=== PATIENT | male | born 1965 | race Caucasian/White ===

== ENCOUNTER 2021-04-01 23:28 | Emergency (ER) | payer SELFPAY ==
[2021-04-02] MEDS ORDERED: XYLOCAINE 1% HCL 20 ML MDV IJ ONE (00:12)
[2021-04-02] MEDS ORDERED: HYDROCODONE-ACETAMIN 10-325 MG PO ONE (00:14)
[2021-04-02 00:25] VITALS: O2SAT 98
[2021-04-02] MEDS ORDERED: KEFLEX 500 MG PO ONE (01:05)
--- NOTE | 2021-04-02 01:06 | ERPHSYRPT ---
- History of Present Illness Time Seen by Provider: 04/02/21 01:06 Source: patient Exam Limitations: no limitations Patient Subjective Stated Complaint: "I cut my toe up." Triage Nursing Assessment: Patient reported cutting his foot on something at home. He does not know what he cut the foot on d/t complications from a lumbar spine surgery. Denied any falls. right 4th/5th toe with laceration to the volar side with moderate bleeding. Adipose tissue visible. Pulse/motor/sensory intact. Method of Injury: direct blow Occurred: just prior to arrival Quality: constant Severity of Pain-Max: moderate Severity of Pain-Current: moderate Lower Extremities Pain: 3rd toe: right, 4th toe: right Modifying Factors: Improves With: movement Associated Symptoms: none Allergies/Adverse Reactions: Iodinated Contrast Media Allergy (Verified 04/01/21 23:50) tetanus and diphtheria toxoids Allergy (Verified 04/01/21 23:50) Home Medications: Amiodarone HCl 200 mg PO DAILY 04/02/21 [History] Apixaban [Eliquis 5 mg Tablet] 5 mg PO DAILY 04/02/21 [History] Cyclobenzaprine HCl 10 mg PO DAILY 04/02/21 [History] Furosemide 20 mg [Lasix 20 mg] 20 mg PO DAILY 04/02/21 [History] Gabapentin 300 mg [Neurontin 300 mg] 600 mg PO TID 04/02/21 [History] Hydrocodone/Acetaminophen [Hydrocodone-Acetamin 5-325 mg] 1 tab PO TID PRN 04/02/21 [History] Metoprolol Succinate [Toprol Xl] 25 mg PO BID 04/02/21 [History] Metoprolol Succinate [Toprol Xl] 100 mg PO BID 04/02/21 [History] Sertraline HCl 75 mg PO DAILY 04/02/21 [History] lisinopriL [Lisinopril] 5 mg PO DAILY 04/02/21 [History] Hx Tetanus, Diphtheria Vaccination/Date Given: No Hx Influenza Vaccination/Date Given: No Travel Risk - International Travel Have you traveled outside of the country in past 3 weeks: No - Coronavirus Screening Are you exhibiting any of the following symptoms?: No Close contact with a COVID-19 positive Pt in past 14-21 Days: No - Vaccine Status Have you recieved a Covid-19 vaccination: 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[employer] - Vaccination Dates Date of 2cond Vaccination (if applicable): 11/2020 - Review of Systems Constitutional: No Symptoms Eyes: No Symptoms Ears, Nose, & Throat: No Symptoms Respiratory: No Symptoms Cardiac: No Symptoms Abdominal/Gastrointestinal: No Symptoms Genitourinary Symptoms: No Symptoms Musculoskeletal: No Symptoms Skin: No Symptoms Neurological: No Symptoms Psychological: No Symptoms Endocrine: No Symptoms Hematologic/Lymphatic: No Symptoms Immunological/Allergic: No Symptoms All Other Systems: Reviewed and Negative - Past Medical History Pertinent Past Medical History: Yes Cardiac History: Arrhythmia, Congestive Heart Failure, Hypertension Musculoskeletal History: Other Other Medical History: lumbar stenosis - Past Surgical History Past Surgical History: Yes Gastrointestinal: Cholecystectomy Musculoskeletal: Orthopedic Surgery Other Surgical History: Gastric bypass - Social History Smoking Status: Never smoker Exposure to second hand smoke: No Drug Use: marijuana Patient Lives Alone: No - Nursing Vital Signs Nursing Vital Signs: Initial Vital Signs Temperature 98.2 F 04/01/21 23:30 Pulse Rate 108 H 04/01/21 23:30 Respiratory Rate 18 04/01/21 23:30 Blood Pressure 143/101 04/01/21 23:30 O2 Sat by Pulse Oximetry 98 04/01/21 23:30 Pain Scale Pain Intensity 4 - Physical Exam General Appearance: mild distress Eyes, Ears, Nose, Throat Exam: normal ENT inspection Neck Exam: normal inspection Cardiovascular/Respiratory Exam: chest non-tender Gastrointestinal/Abdominal Exam: non-tender Back Exam: decreased range of motion Foot Exam: right foot: limited range of motion, soft tissue tenderness Neuro/Tendon Exam: normal sensation, normal motor functions Mental Status Exam: alert, oriented x 3 Skin Exam: normal color SpO2 Interpretation: normal SpO2: 98 O2 Delivery: Room Air Procedures - Laceration/Wound Repair Right Posterior Toe Wound Location: Right, foot Wound Length (cm): 6 Wound's Depth, Shape: linear Wound Explored: clean Irrigated: Yes Hibiclens Prep: Yes Anesthesia: local Volume Anesthetic (ccs): 10 Wound Repaired With: sutures Suture Size/Type: 4-0, prolene Number of Sutures: 8 Layer Closure?: No Sterile Dressing Applied?: Yes Splint Applied?: No - Course Nursing assessment & vital signs reviewed: Yes Ordered Tests: Medication Summary Discontinued Medications Generic Name Dose Route Start Last Admin Trade Name Freq PRN Reason Stop Dose Admin Hydrocodone Bitart/Acetaminophen 1 tablet 04/02/21 00:14 04/02/21 00:22 Hydrocodone/Acetamin 10-325 Mg Tablet PO 04/02/21 00:15 1 tablet ONCE ONE Administration Cephalexin HCl 500 mg 04/02/21 01:05 04/02/21 01:26 Cephalexin Mh500 Mg Capsule PO 04/02/21 01:06 500 mg STAT ONE Administration Cephalexin HCl Confirm 04/02/21 01:25 Cephalexin Mh500 Mg Capsule Administered 04/02/21 01:26 Dose 500 mg .ROUTE .STK-MED ONE Lidocaine HCl 10 ml 04/02/21 00:12 04/02/21 00:23 Lidocaine Hcl 1% 20 Ml Mdv 20 Ml Ml IJ 04/02/21 00:13 10 ml STAT ONE Administration - Progress Progress: improved Progress Note: 04/02/21 04:45 Difficult repair of plantar toe bases on right foot, 4th and 5th toes. Reduced ROM, NVI. Declined x-ray. Highly exaggerated pain. Tetanus - allergic. Counseled pt/family regarding: diagnosis, need for follow-up - Departure Departure Disposition: Home Clinical Impression: Foot laceration Qualifiers: Encounter type: initial encounter Laterality: right Qualified Code(s): S91.311A - Laceration without foreign body, right foot, initial encounter Condition: Stable Critical Care Time: No Referrals: DOCTOR,NO FAMILY [Primary Care Provider] - Follow up/PCP as directed Instructions: Laceration Repair With Stitches (DC) Additional Instructions: Keep the area gently clean and dry. Apply antibiotic ointment and a bandage as needed. Stitches out in about 2 weeks, check sooner if any problems. Prescriptions: Hydrocodone/Acetaminophen [Hydrocodone-Acetamin 10-325 mg] 1 tablet PO Q6H PRN #12 tablet MDD 4 PRN Reason: Moderate To Severe Pain Cephalexin Mh 500 mg [Keflex 500 mg] 500 mg PO TID 7 Days #21 cap
[2021-04-02] MEDS ORDERED: KEFLEX 500 MG ONE (01:25)
[2021-04-02 02:29] VITALS: BP 140/82; PULSE 88
== END 2021-04-02 02:00 | disposition home or self-care (01) ==
LOC: ED 23:28
DX: S91.114A Laceration without foreign body of right lesser toe(s) without damage to nail, initial encounter (principal); I11.0 Hypertensive heart disease with heart failure; I50.9 Heart failure, unspecified; Z79.891 Long term (current) use of opiate analgesic; Z79.01 Long term (current) use of anticoagulants; Z79.899 Other long term (current) drug therapy
CPT/HCPCS: 12002; 96372; 99284; A9270-GY

== ENCOUNTER 2022-08-24 20:20 | Emergency (ER) | payer OTHER ==
[2022-08-24] MEDS ORDERED: MORPHINE SULFATE 4 MG INJ IM ONE (20:57)
[2022-08-24] MEDS ORDERED: TYLENOL 325 MG PO ONE (20:57)
[2022-08-24] MEDS ORDERED: MORPHINE SULFATE 4 MG INJ ONE (21:00)
[2022-08-24] MEDS ORDERED: TYLENOL 325 MG ONE (21:00)
--- NOTE | 2022-08-24 21:19 | ERPHSYRPT ---
- History of Present Illness Time Seen by Provider: 08/24/22 20:22 Source: patient Exam Limitations: no limitations Patient Subjective Stated Complaint: pt states "I have had left rotator cuff issues for a long time and this morning around 1000 it started hurting real bad and I can't grasp with either of my hands". Triage Nursing Assessment: pt brought to room 5 via wheelchair, pt is very vocal about being in pain and is frequently changing positions in the cot. pt is alert and oriented times three, able to move all extremities (left arm and bilat hand ROM deferred at this time due to pain per pt report), resp even and unlabored and pt is able to speak in complete sentences. pt reports that greater than 1 yr ago he was told that he needs left rotator cuff repair but has been "putting it off". he reports that this am he felt "good" then around 1000 his left shoulder pain became unbearable and he has also not been able to grasp anything in either hand due to cramping and pain. sensation is intact, good cap refill, bilat radial pulses palpable, skin warm, pink, dry, intact. denies numbness or tingling at this time. pt intermittently moving fingers on both hands despite stating that he cannot move them. Physician History: 56-year-old male with history of atrial fibrillation on Eliquis, hypertension, hyperlipidemia, chronic back pain on pain medications, rotator cuff tear left for quite some time presented in the ER with chief complaint of left shoulder pain getting worse since morning and also pain in both hand first webspace/first 2 digits with movements and noted some swelling of first and second metacarpophalangeal joints bilaterally. Patient denies any chest pain palpitations or shortness of breath. Denies any neck pain. Reports having difficulty had his baseline with full range of motion of the left shoulder and it got really worse today without any fall or trauma. Movements at finger joints is also painful. Denies any fever or chills. No history of gout. Patient does not think shoulder pain has anything to do with the heart and does not want chest x-ray, EKG at all. Does understand the risk involved with not doing these test. who is an MA at a primary care is also involved in decision making about not doing EKG and chest x-rays. Occurred: this morning Quality: sharpness Severity of Pain-Max: severe Severity of Pain-Current: severe Extremities Pain Location: shoulder: left, hand: bilateral, thumb: bilateral, 2nd finger: bilateral Modifying Factors: Improves With: immobilization, pain medication. Worsens With: movement Associated Symptoms: back pain, No chest discomfort, No chest pain, No dyspnea, No fever, No jaw pain, No nausea, No neck pain, No short of breath, No vomiting Allergies/Adverse Reactions: Iodinated Contrast Media Allergy (Verified 04/01/21 23:50) tetanus and diphtheria toxoids Allergy (Verified 04/01/21 23:50) Home Medications: Amiodarone HCl 200 mg PO HS 04/02/21 [History] Apixaban [Eliquis 5 mg Tablet] 5 mg PO BID 04/02/21 [History] Cyclobenzaprine HCl 10 mg PO DAILY 04/02/21 [History] Furosemide 20 mg [Lasix 20 mg] 20 mg PO DAILY 04/02/21 [History] Gabapentin [Neurontin ] 600 mg PO BID 04/02/21 [History] Metoprolol Succinate [Toprol Xl] 25 mg PO BID 04/02/21 [History] Sertraline HCl 75 mg PO DAILY 04/02/21 [History] lisinopriL [Lisinopril] 5 mg PO DAILY 04/02/21 [History] Iron 65mg 65 mg PO DAILY 08/24/22 [History] Hx Tetanus, Diphtheria Vaccination/Date Given: No (allergy) Hx Influenza Vaccination/Date Given: No Hx Pneumococcal Vaccination/Date Given: No Immunizations Up to Date: Yes Travel Risk - International Travel Have you traveled outside of the country in past 3 weeks: No - Coronavirus Screening Are you exhibiting any of the following symptoms?: No Close contact with a COVID-19 positive Pt in past 14-21 Days: No - Vaccine Status Have you recieved a Covid-19 vaccination: Yes 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[employer] - Vaccination Dates Date of 2cond Vaccination (if applicable): 11/2020 - Review of Systems Constitutional: No Symptoms Eyes: No Symptoms Ears, Nose, & Throat: No Symptoms Respiratory: No Symptoms Cardiac: No Symptoms Abdominal/Gastrointestinal: No Symptoms Genitourinary Symptoms: No Symptoms Musculoskeletal: Arthralgias, Back Pain, Joint Pain, Myalgias Skin: No Symptoms Neurological: No Symptoms Psychological: No Symptoms Endocrine: No Symptoms Hematologic/Lymphatic: No Symptoms Immunological/Allergic: No Symptoms - Past Medical History Pertinent Past Medical History: Yes Neurological History: No Pertinent History ENT History: No Pertinent History Cardiac History: Arrhythmia, Congestive Heart Failure, Hypertension Respiratory History: No Pertinent History Endocrine Medical History: No Pertinent History Musculoskeletal History: Other GI Medical History: No Pertinent History History: No Pertinent History Psycho-Social History: No Pertinent History Male Reproductive Disorders: No Pertinent History Other Medical History: lumbar stenosis - Past Surgical History Past Surgical History: Yes Neuro Surgical History: No Pertinent History Cardiac: No Pertinent History Respiratory: No Pertinent History Gastrointestinal: Cholecystectomy Genitourinary: No Pertinent History Musculoskeletal: Orthopedic Surgery Male Surgical History: No Pertinent History Other Surgical History: Gastric bypass. lumbar discectomy L4-5 - Social History Smoking Status: Never smoker Exposure to second hand smoke: No Drug Use: marijuana Patient Lives Alone: No - Nursing Vital Signs Nursing Vital Signs: Initial Vital Signs Temperature 97.3 F 08/24/22 20:33 Pulse Rate 63 08/24/22 20:33 Respiratory Rate 20 08/24/22 20:33 Blood Pressure 146/97 08/24/22 20:33 O2 Sat by Pulse Oximetry 97 08/24/22 20:33 Pain Scale Pain Intensity 5 - Physical Exam General Appearance: no apparent distress, alert Eyes, Ears, Nose, Throat Exam: normal ENT inspection Neck Exam: normal inspection, non-tender, supple, full range of motion, No Brudzinski Cardiovascular/Respiratory Exam: chest non-tender, normal breath sounds, regular rate/rhythm Abdominal Exam: non-tender, soft Shoulder Exam: normal inspection, limited ROM (Left shoulder in all direction, tenderness to palpation. No Hill-Sachs deformity.), soft tissue tenderness (Left shoulder) Elbow/Forearm Exam: normal inspection, non-tender, no evidence of injury, normal ROM Wrist Exam: normal inspection, non-tender, no evidence of injury, normal ROM Hand Exam: limited ROM (Bilateral first and second metacarpophalangeal joints. Mild tenderness of first webspaces bilaterally), stiffness, swelling Neuro/Tendon Exam: normal sensation, normal motor functions Mental Status Exam: alert, oriented x 3, cooperative Skin Exam: normal color SpO2 Interpretation: normal SpO2: 100 O2 Delivery: Room Air Ordered Tests: Active Orders 24 hr Category Date Time Status SHOULDER Stat Exams 06/08/23 21:25 Taken CBC W DIFF Stat Lab 08/24/22 21:25 Completed CMP Stat Lab 08/24/22 21:25 Completed UA W/RFX UR CULTURE Stat Lab 08/24/22 22:13 Completed Uric Acid Stat Lab 08/24/22 21:25 Completed Medication Summary Discontinued Medications Generic Name Dose Route Start Last Admin Trade Name Preethi PRN Reason Stop Dose Admin Acetaminophen 975 mg 08/24/22 20:57 08/24/22 21:01 Acetaminophen 325 Mg Tablet PO 08/24/22 20:58 975 mg STAT ONE Administration Acetaminophen Confirm 08/24/22 21:00 Acetaminophen 325 Mg Tablet Administered 08/24/22 21:01 Dose 975 mg .ROUTE .STK-MED ONE Morphine Sulfate 4 mg 08/24/22 20:57 08/24/22 21:02 Morphine Sulfate 4 Mg/Ml Injection IM 08/24/22 20:58 4 mg STAT ONE Administration Morphine Sulfate Confirm 08/24/22 21:00 Morphine Sulfate 4 Mg/Ml Injection Administered 08/24/22 21:01 Dose 4 mg .ROUTE .STK-MED ONE Triamcinolone Acetonide 60 mg 08/24/22 22:41 08/24/22 22:45 Triamcinolone Acetonide 40 Mg/Ml Ml IM 08/24/22 22:42 60 mg 1XONLY ONE Administration Triamcinolone Acetonide Confirm 08/24/22 22:43 Triamcinolone Acetonide 40 Mg/Ml Ml Administered 08/24/22 22:44 Dose 80 mg .ROUTE .STK-MED ONE Lab/Rad Data: Laboratory Result Diagrams 08/24/22 21:25 08/24/22 21:25 Laboratory Results 08/24/22 08/24/22 08/24/22 Range/Units 22:13 21:25 21:25 WBC (4.0-10.5) x10^3/uL RBC (4.1-5.6) x10^6/uL Hgb (12.5-18.0) g/dL Hct (42-50) % MCV (78-100) fL MCH (26-32) pg MCHC (32-36) g/dL RDW (11.5-14.0) % Plt Count (150-450) x10^3/uL MPV (7.5-11.0) fL Gran % (36.0-66.0) % Immature Gran % (Auto) (0.00-0.4) % Nucleat RBC Rel Count (0.00-0.1) % Eos # (Auto) (0-0.5) x10^3/uL Immature Gran # (Auto) (0.00-0.03) x10^3u/L Absolute Lymphs (auto) (1.0-4.6) x10^3/uL Absolute Monos (auto) (0.0-1.3) x10^3/uL Absolute Nucleated RBC (0.00-0.01) x10^3u/L Lymphocytes % (24.0-44.0) % Monocytes % (0.0-12.0) % Eosinophils % (0.00-5.0) % Basophils % (0.0-0.4) % Absolute Granulocytes (1.4-6.9) x10^3/uL Basophils # (0-0.4) x10^3/uL Sodium 135 L (137-145) mmol/L Potassium 4.1 (3.5-5.1) mmol/L Chloride 100 (98-107) mmol/L Carbon Dioxide 26 (22-30) mmol/L Anion Gap 12.5 (5-15) MEQ/L BUN 9 (9-20) mg/dL Creatinine 1.00 (0.66-1.25) mg/dL Estimated GFR > 60.0 ML/MIN Glucose 133 H (74-106) mg/dL Uric Acid 5.2 (3.5-7.2) mg/dL Calcium 8.3 L (8.4-10.2) mg/dL Total Bilirubin 0.50 (0.2-1.3) mg/dL AST 32 (17-59) U/L ALT 29 (0-50) U/L Alkaline Phosphatase 87 (38-126) U/L Serum Total Protein 7.0 (6.3-8.2) g/dL Albumin 3.8 (3.5-5.0) g/dL Urine Color Yellow (Yellow) Urine Appearance Clear (Clear) Urine pH 5.5 (4.6-8.0) Ur Specific [place] 1.015 (1.005-1.030) Urine Protein Negative (Negative) Urine Glucose (UA) Negative (Negative) mg/dL Urine Ketones Negative (Negative) Urine Blood Negative (Negative) Urine Nitrite Negative (Negative) Urine Bilirubin Negative (Negative) Urine Urobilinogen 1.0 A (0.2) mg/dL Ur Leukocyte Esterase Negative (Negative) U Hyaline Cast (Auto) NONE SEEN (0-2) /LPF Urine Microscopic RBC 0-2 (0-5) /HPF Urine Microscopic WBC 3-5 (0-5) /HPF Ur Epithelial Cells None Seen (None Seen) /HPF Urine Bacteria None Seen (None Seen) /HPF Urine Culture Reflexed NO (NO) 08/24/22 Range/Units 21:25 WBC 12.9 H (4.0-10.5) x10^3/uL RBC 3.61 L (4.1-5.6) x10^6/uL Hgb 11.5 L (12.5-18.0) g/dL Hct 35.7 L (42-50) % MCV 98.9 (78-100) fL MCH 31.9 (26-32) pg MCHC 32.2 (32-36) g/dL RDW 13.1 (11.5-14.0) % Plt Count 213 (150-450) x10^3/uL MPV 11.3 H (7.5-11.0) fL Gran % 80.7 H (36.0-66.0) % Immature Gran % (Auto) 0.4 (0.00-0.4) % Nucleat RBC Rel Count 0.0 (0.00-0.1) % Eos # (Auto) 0.01 (0-0.5) x10^3/uL Immature Gran # (Auto) 0.05 H (0.00-0.03) x10^3u/L Absolute Lymphs (auto) 1.66 (1.0-4.6) x10^3/uL Absolute Monos (auto) 0.75 (0.0-1.3) x10^3/uL Absolute Nucleated RBC 0.00 (0.00-0.01) x10^3u/L Lymphocytes % 12.8 L (24.0-44.0) % Monocytes % 5.8 (0.0-12.0) % Eosinophils % 0.1 (0.00-5.0) % Basophils % 0.2 (0.0-0.4) % Absolute Granulocytes 10.44 H (1.4-6.9) x10^3/uL Basophils # 0.03 (0-0.4) x10^3/uL Sodium (137-145) mmol/L Potassium (3.5-5.1) mmol/L Chloride (98-107) mmol/L Carbon Dioxide (22-30) mmol/L Anion Gap (5-15) MEQ/L BUN (9-20) mg/dL Creatinine (0.66-1.25) mg/dL Estimated GFR ML/MIN Glucose (74-106) mg/dL Uric Acid (3.5-7.2) mg/dL Calcium (8.4-10.2) mg/dL Total Bilirubin (0.2-1.3) mg/dL AST (17-59) U/L ALT (0-50) U/L Alkaline Phosphatase (38-126) U/L Serum Total Protein (6.3-8.2) g/dL Albumin (3.5-5.0) g/dL Urine Color (Yellow) Urine Appearance (Clear) Urine pH (4.6-8.0) Ur Specific [place] (1.005-1.030) Urine Protein (Negative) Urine Glucose (UA) (Negative) mg/dL Urine Ketones (Negative) Urine Blood (Negative) Urine Nitrite (Negative) Urine Bilirubin (Negative) Urine Urobilinogen (0.2) mg/dL Ur Leukocyte Esterase (Negative) U Hyaline Cast (Auto) (0-2) /LPF Urine Microscopic RBC (0-5) /HPF Urine Microscopic WBC (0-5) /HPF Ur Epithelial Cells (None Seen) /HPF Urine Bacteria (None Seen) /HPF Urine Culture Reflexed (NO) - Progress Progress: improved, pain not gone completely, re-examined Progress Note: 08/24/22 23:05 56-year-old male with history of atrial fibrillation on Eliquis, hypertension, hyperlipidemia, chronic back pain on pain medications, rotator cuff tear left f or quite some time presented in the ER with chief complaint of left shoulder pain getting worse since morning and also pain in both hand first webspace/first 2 digits with movements and noted some swelling of first and second metacarpophalangeal joints bilaterally. Patient denies any chest pain pal pitations or shortness of breath. Denies any neck pain. Reports having difficulty had his baseline with full range of motion of the left shoulder and it got really worse today without any fall or trauma. Movements at finger joints is also painful. Denies any fever or chills. No history of gout. Patient does not think shoulder pain has anything to do with the heart and does not want chest x-ray, EKG at all. Does understand the risk involved with not doing these test. who is an MA at a primary care is also involved in decision making about not doing EKG and chest x-rays. Patient is given symptomatic treatment with morphine, on reevaluation pain is better but not completely resolved. Patient is able to move his shoulder a little bit better. X-rays reviewed by me left shoulder did not reveal any obvious fracture dislocation, official report is pending. I have obtain baselin e lab work and it showed white count of 12, fairly unremarkable chemistries and normal uric acid. Patient again refused to have any cardiac work-up done and is adamant that it is from his shoulder. I would give him a shot of triamcinolone/Kenalog and recommended outpatient orthopedics follow-up for further evaluation and possible surgical intervention for rotator cuff issue. Recommended continuing with pain medications which she has at home and discussed signs symptoms of worsening needing return to ER which she seems understanding. Counseled pt/family regarding: lab results, diagnosis, need for follow-up, rad results Medical Desision Making - Independent Historian Additional History obtained from: Spouse - Diagnostic Testing Diagnostic test were ordered, analyzed, and reviewed by me: Yes Radiological Interpretation: Interpreted by me, Reviewed by me - Risk of complications The pt has a mod risk of morbidity or mortality based on: Need for prescription drug management - Departure Departure Disposition: Home Clinical Impression: Rotator cuff arthropathy of left shoulder Condition: Stable Critical Care Time: No Referrals: SHELLY SYLVESTER MD [Primary Care Provider] - Follow up with PCP 1 day SAGAR - ZEENAT GARCIA NP [NON-STAFF PHY W/O PRIVILEGES] - Follow up/PCP as directed (1 2 days for reevaluation) Instructions: Shoulder Tendinopathy (DC) Additional Instructions: Follow-up with your primary care physician and orthopedics for reevaluation in the next couple of days Continue with your current pain medicines as recommended. Return to ER for intractable shoulder pain or if having chest pain palpitations or shortness of breath.
[2022-08-24 21:29] LABS: Absolute Neutrophil Ct (ANC) 10.44 x10^3/uL (1.4-6.9); BASOPHIL % 0.2 % (0.0-0.4); Basophil (Absolute #) 0.03 x10^3/uL (0-0.4); Eosinophil % 0.1 % (0.00-5.0); Eosinophil (Absolute #) 0.01 x10^3/uL (0-0.5); Hematocrit 35.7 % (42-50); Hemoglobin 11.5 g/dL (12.5-18.0); IMMATURE GRAN # 0.05 x10^3u/L (0.00-0.03); IMMATURE GRAN % 0.4 % (0.00-0.4); Lymphocyte (Absolute #) 1.66 x10^3/uL (1.0-4.6); Lymphocytes % 12.8 % (24.0-44.0); Mean Cell Volume 98.9 fL (78-100); Mean Corpuscular Hemoglobin 31.9 pg (26-32); Mean Corpuscular Hgb Concent. 32.2 g/dL (32-36); Mean Platelet Volume 11.3 fL (7.5-11.0); Monocyte (Absolute #) 0.75 x10^3/uL (0.0-1.3); Monocytes % 5.8 % (0.0-12.0); Neutrophil % 80.7 % (36.0-66.0); Platelet Count 213 x10^3/uL (150-450); Red Blood Count 3.61 x10^6/uL (4.1-5.6); Red Cell Distribution Width 13.1 % (11.5-14.0); White Blood Count 12.9 x10^3/uL (4.0-10.5)
[2022-08-24 21:39] LABS: ALBUMIN 3.8 g/dL (3.5-5.0); ALKALINE PHOSPHATASE 87 U/L (38-126); ANION GAP 12.5 MEQ/L (5-15); BLOOD UREA NITROGEN 9 mg/dL (9-20); CHLORIDE 100 mmol/L (98-107); Calcium 8.3 mg/dL (8.4-10.2); Carbon Dioxide 26 mmol/L (22-30); EST GLOMERULAR FILTRATION RATE > 60.0 ML/MIN; Glucose 133 mg/dL (74-106); Potassium 4.1 mmol/L (3.5-5.1); SGOT/AST 32 U/L (17-59); SGPT/ALT 29 U/L (0-50); SODIUM 135 mmol/L (137-145)
[2022-08-24 22:25] LABS: Appearance Clear (Clear); Bacteria None Seen /HPF (None Seen); Bilirubin Negative (Negative); Blood Negative (Negative); Epithelial Cells None Seen /HPF (None Seen); Glucose, Urine Negative (Negative); Hyaline Casts NONE SEEN /LPF (0-2); Ketones Negative (Negative); Leukocyte Esterase Negative (Negative); Nitrite Negative (Negative); Ph 5.5 (4.6-8.0); Protein,Urine Dip Negative (Negative); RBC 0-2 /HPF (0-5); Specific Gravity 1.015 (1.005-1.030)
[2022-08-24 22:35] LABS: ADD URINE CULTURE? NO (NO)
[2022-08-24] MEDS ORDERED: Kenalog-40 IM ONE (22:41)
[2022-08-24] MEDS ORDERED: Kenalog-40 ONE (22:43)
[2022-08-24 23:02] VITALS: BP 124/73; PULSE 61
[2022-08-24 23:07] VITALS: O2SAT 100
--- NOTE | 2022-08-25 08:36 | XRAY ---
Indication: Pain. No known injury. Comparison: None 3 view left shoulder demonstrates mild acromioclavicular degenerative changes and minimal/mild cervical thoracic degenerative changes. Slightly high riding humeral head commonly seen with rotator cuff tear. No other bony, articular, or soft tissue abnormalities.
== END 2022-08-24 23:03 | disposition home or self-care (01) ==
LOC: ED 20:20
DX: M12.9 Arthropathy, unspecified (principal); M75.102 Unspecified rotator cuff tear or rupture of left shoulder, not specified as traumatic; M25.512 Pain in left shoulder; M79.641 Pain in right hand; M79.642 Pain in left hand; I11.0 Hypertensive heart disease with heart failure; I50.9 Heart failure, unspecified; E78.5 Hyperlipidemia, unspecified; Z79.01 Long term (current) use of anticoagulants; Z79.899 Other long term (current) drug therapy
CPT/HCPCS: 36415; 73030; 80053; 81001; 84550; 85025; 96372; 99284; J2270; J3301; A9270-GY